=== PATIENT | female | born 1970 | race Caucasian/White ===

== ENCOUNTER 2023-07-15 13:13 | Emergency (ER) | payer OTHER, SELFPAY ==
--- NOTE | 2023-07-15 13:22 | ED.EYEPROB ---
HPI - Eye Problem General Chief complaint: Eye Problems Stated complaint: EYE REDNESS Time Seen by Provider: 07/15/23 13:43 Source: patient and RN notes reviewed Mode of arrival: ambulatory Limitations: no limitations History of Present Illness HPI Narrative: 52-year-old female presents with concern for right eye redness, itchiness, and purulent discharge. Reports they were crusted shut this morning. She denies vision changes or cold symptoms. chief complaint: eye redness Related Data Allergies Allergy/AdvReac Type Severity Reaction Status Date / Time No Known Allergies Allergy Verified 07/15/23 13:48 Review of Systems Review of Systems: CONSTITUTIONAL: Denies malaise, chills, sweats, or fever. EYES: Denies visual changes. Reports right eye redness, irritation, discharge. ENT: Denies rhinorrhea, congestion, sinus pain, otalgia or sore throat. SKIN: Denies rash or itching. NEUROLOGIC: Denies numbness, weakness, or headache. PSYCHIATRIC: Denies anxiety or depression. All systems reviewed & are unremarkable except as noted in HPI and below PMFSH Comments At time of signature, agree with nursing past medical, surgical, social and family history. There is no relevant family history pertinent to the presenting complaint Exam Narrative: GENERAL: Well-appearing, well-nourished, and in no acute distress. HEAD: Normocephalic, atraumatic. EYES: PERRLA and EOMI. No nystagmus. Right sclera and conjunctivae injected with yellow drainage. Upper and lower eyelid unremarkable, no periorbital edema noted ENT: Nares clear, turbinates pink, no rhinorrhea or epistaxis. Mucous membranes moist. TM pearly wolfe with sharp light reflex bilaterally; no tragal tenderness. NECK: Supple. CHEST: No respiratory distress. Speaks in full sentences. HEART: Regular rate and rhythm. SKIN: Warm, dry, no visible rash. NEURO: Alert and oriented x3. PSYCH: Normal mood and affect Course Course Emergency Course: Patient is aware of diagnosis, understands and agrees to treatment plan. Anticipatory guidance given. Patient agrees to follow-up as directed and is aware of reasons to seek care at the emergency department. Portions of this record may have been created with voice recognition software Level of Care: Express Care Visit Vital Signs Vital signs: Vital Signs Temperature 97.6 F 07/15/23 13:29 Pulse Rate 79 07/15/23 13:29 Respiratory Rate 16 07/15/23 13:29 Blood Pressure 105/71 07/15/23 13:29 Pulse Oximetry 99 07/15/23 13:29 Temperature 97.6 F 07/15/23 13:29 Pulse Rate 79 07/15/23 13:29 Respiratory Rate 16 07/15/23 13:29 Blood Pressure 105/71 07/15/23 13:29 Pulse Oximetry 99 07/15/23 13:29 Reviewed. MDM - Eye Problem MDM Narrative Medical decision making narrative: Consideration of the following conditions may be warranted for the presenting problem, they are not final diagnoses: Bacterial conjunctivitis, allergic conjunctivitis, viral conjunctivitis, foreign body, blepharitis, chalazion, hordeolum, corneal abrasion, preseptal cellulitis, orbital cellulitis. No evidence of proptosis, ophthalmoplegia, vision loss, pain with eye movement. Exam findings show no acute concerns or changes; patient is non-toxic appearing and is in no distress. Patient is appropriate for outpatient treatment and follow-up. Critical Care Time Critical Care Time Critical Care Time: No Discharge Plan Discharge Clinical Impression: Bacterial conjunctivitis Patient Disposition: Home, Self-Care Condition: Stable Instructions: Conjunctivitis (ED) Additional Instructions: Do not touch or rub your eye. Use a warm or cool washcloth on your eye for comfort Use eyedrops as directed Practice good handwashing and hygiene to prevent spread of infection You may take Tylenol or ibuprofen for pain Follow-up with PCP or dent remover if condition is not improving in 2-3days. Go to the emergency room if
[2023-07-15 13:29] VITALS: BP 105/71; PULSE 79; RESP 16; TEMP 36.4; O2SAT 99
== END 2023-07-15 13:54 | disposition home or self-care (01) ==
PROVIDERS: Emergency Provider Nurse Practitioner
DX: H10.9 Unspecified conjunctivitis (principal)
CPT/HCPCS: 99213; G0463